=== PATIENT | female | born 2000 | race Caucasian/White ===

== ENCOUNTER 2023-05-25 16:11 | Emergency (ER) | payer OTHER, SELFPAY ==
[2023-05-25] VITALS (9 sets, daily range): BP systolic 154; BP diastolic 101; PULSE 60–78; RESP 14–21; TEMP 36.8; O2SAT 98; BMI 33.2
--- NOTE | 2023-05-25 16:53 | PC.NURSE ---
Pt had a cheerleading accident years ago and has had chronic back pain since then. States the last couple days the pain has been increasing. No kne injury per pt. Pt has no issues with bowel or bladder.
--- NOTE | 2023-05-25 17:01 | ED_ITS ---
HPI - General Adult General Chief complaint: Back Pain/Injury Stated complaint: CHEST PAIN AND BACK PAIN Time Seen by Provider: 05/25/23 16:27 Source: patient and family Mode of arrival: walk-in Limitations: no limitations History of Present Illness HPI narrative: patient is a 23-year-old female who presents to the emergency department for a variety of complaints. Patient states for the last several days she has had an increase in her chronic lumbar back pain. She states she has a history of issues at her L1/L2 disc spaces from a cheerleading injury about seven years ago. She never had surgery. She states she has pain to this area as well as the paraspinal areas of the lumbar spine but she states her pain is radiating around to her chest, abdomen. She reports associated bilateral knee pain with no injuries. She denies any swelling of the legs, she has no fevers, cough, congestion or hemoptysis. She has had no vomiting, diarrhea or urinary symptoms. No peripheral paresthesias. She states she has been nauseous, she has not been eating well over the last week. Related Data Previous Rx's Medication Instructions Recorded methocarbamol 750 mg tablet 750 mg PO TID PRN pain #20 tabs 05/25/23 naproxen sodium 550 mg tablet 550 mg PO BID PRN pain #10 tabs 05/25/23 ondansetron 4 mg disintegrating 4 mg PO Q6H PRN nausea and 05/25/23 tablet vomiting #12 tabs Allergies Allergy/AdvReac Type Severity Reaction Status Date / Time No Known Drug Allergies Allergy Verified 05/25/23 16:19 Review of Systems ROS Constitutional Denies: fever or chills Ears, nose, mouth, and throat Denies: neck pain Cardiovascular Reports: chest pain Respiratory Denies: shortness of breath or cough Gastrointestinal Reports: abdominal pain and nausea; Denies: vomiting Genitourinary Denies: painful urination Musculoskeletal Reports: back pain, extremity pain and joint pain; Denies: neck pain Integumentary/Breast Denies: rash Neurological Denies: headache Exam Narrative Exam Narrative: Gen.: Awake, alert, in no distress Head: Normocephalic, atraumatic ENT: Moist mucous membranes Respiratory: No respiratory distress, lungs clear bilaterally Cardio: Regular rate and rhythm Gastrointestinal: Abdomen is soft, nondistended and nontender to palpation Back: no bony tenderness of the T-spine or L-spine with diffuse minimal tenderness of the flanks, no CVA tenderness Extremities: Moves extremities equally, no edema or erythema noted of the bilateral knee joints Psych: Normal mood and affect Neuro: No focal neuro deficit Skin: Warm, dry, intact Constitutional Vital Signs, click to edit/add: Last Vital Signs Temp 98.3 F 05/25/23 16:17 Pulse 60 05/25/23 18:00 Resp 19 05/25/23 17:40 BP 154/101 H 05/25/23 16:17 Pulse Ox 98 05/25/23 16:17 O2 Del Method Room Air 05/25/23 16:17 Course Vital Signs Vital signs: Vital Signs Temperature 98.3 F 05/25/23 16:17 Pulse Rate 78 05/25/23 16:17 Respiratory Rate 18 05/25/23 16:17 Blood Pressure 154/101 H 05/25/23 16:17 Pulse Oximetry 98 05/25/23 16:17 Oxygen Delivery Method Room Air 05/25/23 16:17 Temperature 98.3 F 05/25/23 16:17 Pulse Rate 60 05/25/23 18:00 Respiratory Rate 19 05/25/23 17:40 Blood Pressure 154/101 H 05/25/23 16:17 Pulse Oximetry 98 05/25/23 16:17 Oxygen Delivery Method Room Air 05/25/23 16:17 Medical Decision Making MDM Narrative Medical decision making narrative: labs are unremarkable, exam is consistent with muscular skeletal back pain. Patient was reexamined by attending physician prior to discharge. She is started on NSAIDs, muscle relaxants and nausea medication. Follow-up with PCP and return to the Emergency Room if symptoms change or worsen. Abdomen is soft and benign, nonsurgical at discharge. Medical Records Medical records reviewed: Yes I reviewed the patient's medical records Lab Data Lab results reviewed: Yes I reviewed the patient's lab results Labs: Lab Results 05/25/23 Range/Units 17:14 WBC 12.9 H (4.0-11.0) 10^3/uL RBC 4.70 (4.20-5.40) 10^6/uL Hgb 13.6 (12.0-16.0) g/dL Hct 40.5 (36.0-48.0) % MCV 86.2 (81.0-99.0) fL MCH 28.9 (26.7-34.0) pg MCHC 33.6 (29.9-35.2) g/dL RDW 13.2 (11.0-15.0) % Plt Count 326 (150-450) 10^3/uL MPV 8.9 L (9.5-13.5) fL Neut % (Auto) 77.2 H (43.0-75.0) % Lymph % (Auto) 16.8 L (20.5-60.0) % [place] % (Auto) 5.2 (1.7-12.0) % Eos % (Auto) 0.2 L (0.9-7.0) % Baso % (Auto) 0.2 (0.2-2.0) % Neut # (Auto) 9.9 H (1.4-6.5) 10^3/uL Lymph # (Auto) 2.2 (1.2-3.8) 10^3/uL [place] # (Auto) 0.7 (0.3-0.8) 10^3/uL Eos # (Auto) 0.0 (0.0-0.7) 10^3/uL Baso # (Auto) 0.0 (0.0-0.1) 10^3/uL Abs Immat Gran (auto) 0.05 H (0.00-0.03) 10^3/uL Imm/Tot Granulo (auto) 0.4 (0.0-0.5) % ESR 28 H (<=20) mm/hr Sodium 140 (136-145) mmol/L Potassium 3.6 (3.5-5.1) mmol/L Chloride 102 (98-107) mmol/L Carbon Dioxide 25.2 (21.0-32.0) mmol/L Anion Gap 16.4 BUN 10.0 (7.0-18.0) mg/dL Creatinine 0.88 (0.55-1.02) mg/dL Est GFR ( Amer) >60 (>=60) Est GFR (Non-Af Amer) >60 (>=60) BUN/Creatinine Ratio 11.4 Glucose 86 (74-106) mg/dL Calcium 8.9 (8.5-10.1) mg/dL Total Bilirubin 0.5 (0.2-1.0) mg/dL AST 14 L (15-37) U/L ALT 20 (14-59) U/L Alkaline Phosphatase 70 (46-116) U/L C-Reactive Protein <0.2 (<=1.0) mg/dL Total Protein 8.0 (6.4-8.2) g/dL Albumin 4.0 (3.4-5.0) g/dL Globulin 4.0 g/dL Albumin/Globulin Ratio 1.0 Lipase 48.0 L (73.0-393.0) U/L Urine HCG, Qual Negative (NEGATIVE) ECG Data Attestation: I personally reviewed and interpreted this ECG as follows: (normal sinus rhythm at a rate of sixty-six, no accute ST elevation or ectopy. EKG reviewed by attending physician) Discharge Plan Discharge Chief Complaint: Back Pain/Injury Clinical Impression: Acute exacerbation of chronic low back pain Patient Disposition: Home, Self-Care Time of Disposition Decision: 18:47 Condition: Good Prescriptions / Home Meds: New methocarbamol 750 mg tablet 750 mg PO TID PRN (Reason: pain) Qty: 20 0RF naproxen sodium 550 mg tablet 550 mg PO BID PRN (Reason: pain) Qty: 10 0RF ondansetron 4 mg tablet,disintegrating 4 mg PO Q6H PRN (Reason: nausea and vomiting) Qty: 12 0RF Instructions: Acute Low Back Pain (ED) Stand Alone Forms: Portal Instructions Referrals: Physician,Non-Staff, MD [Primary Care Provider] - 1 week
--- NOTE | 2023-05-25 17:12 | XR_ITS ---
The [address] [address] Patient Name: ZANDER FANG MRN: [id number] date: 2000 Sex: F Assigned Patient Location: ER Current Patient Location: Accession/Order Number: [id number] Exam Date: 05/25/2023 17:35 Report Date: 05/25/2023 18:55 At the request of: PRIETO CROOK Procedure: XR acute abdomen series EXAM: XR acute abdomen series HISTORY: Abdominal pain COMPARISON: None. TECHNIQUE: Abdominal X-ray, 1 view FINDINGS: Support devices: None. Bowel: Unremarkable bowel gas pattern. No bowel dilatation. No radiographic evidence of nephrolithiasis or ureterolithiasis. Additional findings: None. XR/XR acute abdomen series IMPRESSION: No acute abnormality on radiographic exam. Electronically authenticated by: ANDRES MARES Date: 05/25/2023 18:55
[2023-05-25 17:24] LABS: Basophils Percent Auto 0.2 % (0.2-2.0); Eosinophils Percent Auto 0.2 % (0.9-7.0); Hematocrit 40.5 % (36.0-48.0); Hemoglobin 13.6 g/dL (12.0-16.0); Immature Granulocytes Abs Auto 0.05 10^3/uL (0.00-0.03); Immature Granulocytes Pct Auto 0.4 % (0.0-0.5); Lymphocytes Absolute Auto 2.2 10^3/uL (1.2-3.8); Lymphocytes Percent Auto 16.8 % (20.5-60.0); Mean Corpuscular HGB Conc 33.6 g/dL (29.9-35.2); Mean Corpuscular Hemoglobin 28.9 pg (26.7-34.0); Mean Corpuscular Volume 86.2 fL (81.0-99.0); Mean Platelet Volume 8.9 fL (9.5-13.5); Monocytes Absolute Auto 0.7 10^3/uL (0.3-0.8); Monocytes Percent Auto 5.2 % (1.7-12.0); Neutrophils Absolute Auto 9.9 10^3/uL (1.4-6.5); Neutrophils Percent Auto 77.2 % (43.0-75.0); Platelet Count 326 10^3/uL (150-450); Red Cell Distribution Width 13.2 % (11.0-15.0); White Blood Count 12.9 10^3/uL (4.0-11.0)
--- NOTE | 2023-05-25 17:31 | ECG_ITS ---
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
[2023-05-25 17:35] LABS: Erythrocyte Sedimentation Rate 28 mm/hr (<=20)
[2023-05-25 17:37] LABS: HCG Qualitative NEGATIVE (NEGATIVE)
[2023-05-25 17:38] LABS: Alanine Aminotransferase 20 U/L (14-59); Alkaline Phosphatase 70 U/L (46-116); Anion Gap 16.4; Aspartate Amino Transferase 14 U/L (15-37); BUN Creatinine Ratio 11.4; Bilirubin Total 0.5 mg/dL (0.2-1.0); Calcium 8.9 mg/dL (8.5-10.1); Carbon Dioxide 25.2 mmol/L (21.0-32.0); Chloride 102 mmol/L (98-107); Estimated GFR (African America >60 (>=60); Estimated GFR (Non-African Ame >60 (>=60); Glucose 86 mg/dL (74-106); Potassium 3.6 mmol/L (3.5-5.1); Sodium 140 mmol/L (136-145)
[2023-05-25 17:42] LABS: C Reactive Protein <0.2 mg/dL (<=1.0)
[2023-05-25] MEDS: ORPHENADRINE 60 MG/ 2 ML VIAL IM (17:43)
[2023-05-25] MEDS: KETOROLAC TROMETHAMINE 60 MG/2 ML VIAL IM (17:43)
[2023-05-25] MEDS: ONDANSETRON 4 MG RAPDIS TABLET SL (17:44)
== END 2023-05-25 18:55 | disposition home or self-care (01) ==
PROVIDERS: Physician Assistant; Emergency Provider Emergency Medicine
DX: M54.50 Low back pain, unspecified (principal); G89.29 Other chronic pain
CPT/HCPCS: 36415; 74022; 80053; 81003; 83690; 84703; 85025; 85652; 86140; 93005; 96372; 99285

== ENCOUNTER 2023-05-30 23:29 | Emergency (ER) | payer OTHER, SELFPAY ==
[2023-05-30 23:36] VITALS: BP 161/101; PULSE 88; RESP 16; TEMP 36.6; O2SAT 96; BMI 33.2
--- NOTE | 2023-05-30 23:50 | ED_ITS ---
HPI - General Adult General Chief complaint: Headache Stated complaint: migrain and numbness on l side. Time Seen by Provider: 05/30/23 23:44 Source: patient Mode of arrival: walk-in Limitations: no limitations History of Present Illness HPI narrative: presents complaining of a headache for past 4 days. Woke up 4 days ago with pain behind her right eye and pressure left uatsdin/parietal scalp area. Improved some yesterday. Returned again tonight. State she step out of her car and her left arm felt like it was asleep but she could still move it and the left side of her face was numb. Lasted about 5 minutes. No visual complaint. Denies past history of migraine or similar headaches Related Data Home Medications Medication Instructions Recorded Confirmed metronidazole 500 mg tablet mg 05/30/23 Previous Rx's Medication Instructions Recorded methocarbamol 750 mg tablet 750 mg PO TID PRN pain #20 tabs 05/25/23 naproxen sodium 550 mg tablet 550 mg PO BID PRN pain #10 tabs 05/25/23 ondansetron 4 mg disintegrating 4 mg PO Q6H PRN nausea and 05/25/23 tablet vomiting #12 tabs Allergies Allergy/AdvReac Type Severity Reaction Status Date / Time No Known Drug Allergies Allergy Verified 05/30/23 23:36 Review of Systems ROS Status of ROS 10 or more systems reviewed and unremarkable except as noted in history and below PFSH [facility] Social History Smoking status: Current every day smoker Exam Constitutional Vital Signs, click to edit/add: Last Vital Signs Temp 97.8 F 05/30/23 23:36 Pulse 88 05/30/23 23:36 Resp 16 05/30/23 23:36 BP 161/101 H 05/30/23 23:36 Pulse Ox 96 05/30/23 23:36 O2 Del Method Room Air 05/30/23 23:36 Common normals: no apparent distress, average body habitus, oriented x3, no limitations and healthy appearing HENNC Common normals: normocephalic and head/scalp atraumatic Respiratory Common normals: normal respiratory effort, no retractions, no use of accessory muscles and clear to auscultation bilaterally Cardio Common normals: regular rate, regular rhythm, S1 normal heart sound and S2 normal heart sound GI Common normals: Normal to inspection, nondistended, normoactive bowel sounds present, soft to palpation and non-tender Extremity Common normals: normal to inspection and full ROM Neuro Common normals: oriented x3, CN's II-XII intact bilaterally, moves all extremities, no focal motor deficits and no sensory deficits noted Psych Appearance: grossly normal Course Vital Signs Vital signs: Vital Signs Temperature 97.8 F 05/30/23 23:36 Pulse Rate 88 05/30/23 23:36 Respiratory Rate 16 05/30/23 23:36 Blood Pressure 161/101 H 05/30/23 23:36 Pulse Oximetry 96 05/30/23 23:36 Oxygen Delivery Method Room Air 05/30/23 23:36 Temperature 97.8 F 05/30/23 23:36 Pulse Rate 88 05/30/23 23:36 Respiratory Rate 16 05/30/23 23:36 Blood Pressure 161/101 H 05/30/23 23:36 Pulse Oximetry 96 05/30/23 23:36 Oxygen Delivery Method Room Air 05/30/23 23:36 Medical Decision Making MDM Narrative Medical decision making narrative: patient presents with complicated migraine. associated with left facial and left arm numbness that resolved after 5 minutes . Her headache also resolved. Normal neuro exam. CT brain neg. Patient is now asymptomatic . Discharged home to follow up with Neurology Lab Data Labs: Lab Results 05/30/23 Range/Units 23:55 WBC 14.4 H (4.0-11.0) 10^3/uL RBC 4.88 (4.20-5.40) 10^6/uL Hgb 14.0 (12.0-16.0) g/dL Hct 41.6 (36.0-48.0) % MCV 85.2 (81.0-99.0) fL MCH 28.7 (26.7-34.0) pg MCHC 33.7 (29.9-35.2) g/dL RDW 13.1 (11.0-15.0) % Plt Count 344 (150-450) 10^3/uL MPV 9.0 L (9.5-13.5) fL Neut % (Auto) 80.4 H (43.0-75.0) % Lymph % (Auto) 14.2 L (20.5-60.0) % [place] % (Auto) 4.5 (1.7-12.0) % Eos % (Auto) 0.5 L (0.9-7.0) % Baso % (Auto) 0.1 L (0.2-2.0) % Neut # (Auto) 11.6 H (1.4-6.5) 10^3/uL Lymph # (Auto) 2.0 (1.2-3.8) 10^3/uL [place] # (Auto) 0.7 (0.3-0.8) 10^3/uL Eos # (Auto) 0.1 (0.0-0.7) 10^3/uL Baso # (Auto) 0.0 (0.0-0.1) 10^3/uL Abs Immat Gran (auto) 0.05 H (0.00-0.03) 10^3/uL Imm/Tot Granulo (auto) 0.3 (0.0-0.5) % Sodium 136 (136-145) mmol/L Potassium 3.8 (3.5-5.1) mmol/L Chloride 101 (98-107) mmol/L Carbon Dioxide 23.5 (21.0-32.0) mmol/L Anion Gap 15.3 BUN 11.0 (7.0-18.0) mg/dL Creatinine 1.03 H (0.55-1.02) mg/dL Est GFR ( Amer) >60 (>=60) Est GFR (Non-Af Amer) >60 (>=60) BUN/Creatinine Ratio 10.7 Glucose 92 (74-106) mg/dL Lactate 1.3 (0.4-2.0) mmol/L Calcium 8.7 (8.5-10.1) mg/dL Total Bilirubin 0.3 (0.2-1.0) mg/dL AST 29 (15-37) U/L ALT 60 H (14-59) U/L Alkaline Phosphatase 70 (46-116) U/L Total Protein 8.1 (6.4-8.2) g/dL Albumin 4.2 (3.4-5.0) g/dL Globulin 3.9 g/dL Albumin/Globulin Ratio 1.1 Serum HCG, Qual Negative (NEGATIVE) Discharge Plan Discharge Chief Complaint: Headache Clinical Impression: Migraine Prescriptions / Home Meds: No Action methocarbamol 750 mg tablet 750 mg PO TID PRN (Reason: pain) Qty: 20 0RF naproxen sodium 550 mg tablet 550 mg PO BID PRN (Reason: pain) Qty: 10 0RF ondansetron 4 mg tablet,disintegrating 4 mg PO Q6H PRN (Reason: nausea and vomiting) Qty: 12 0RF metronidazole 500 mg tablet Instructions: Migraine Headache (ED) Additional Instructions: follow up with Neurology Stand Alone Forms: Portal Instructions Referrals: Physician,Non-Staff, MD [Primary Care Provider] - 1 week
[2023-05-31 00:09] LABS: Basophils Percent Auto 0.1 % (0.2-2.0); Eosinophils Absolute Auto 0.1 10^3/uL (0.0-0.7); Eosinophils Percent Auto 0.5 % (0.9-7.0); Hematocrit 41.6 % (36.0-48.0); Immature Granulocytes Abs Auto 0.05 10^3/uL (0.00-0.03); Immature Granulocytes Pct Auto 0.3 % (0.0-0.5); Lymphocytes Percent Auto 14.2 % (20.5-60.0); Mean Corpuscular HGB Conc 33.7 g/dL (29.9-35.2); Mean Corpuscular Hemoglobin 28.7 pg (26.7-34.0); Mean Corpuscular Volume 85.2 fL (81.0-99.0); Monocytes Absolute Auto 0.7 10^3/uL (0.3-0.8); Monocytes Percent Auto 4.5 % (1.7-12.0); Neutrophils Absolute Auto 11.6 10^3/uL (1.4-6.5); Neutrophils Percent Auto 80.4 % (43.0-75.0); Platelet Count 344 10^3/uL (150-450); Red Blood Count 4.88 10^6/uL (4.20-5.40); Red Cell Distribution Width 13.1 % (11.0-15.0); White Blood Count 14.4 10^3/uL (4.0-11.0)
[2023-05-31 00:18] LABS: Alanine Aminotransferase 60 U/L (14-59); Albumin Globulin Ratio 1.1; Albumin Level 4.2 g/dL (3.4-5.0); Alkaline Phosphatase 70 U/L (46-116); Anion Gap 15.3; Aspartate Amino Transferase 29 U/L (15-37); BUN Creatinine Ratio 10.7; Bilirubin Total 0.3 mg/dL (0.2-1.0); Calcium 8.7 mg/dL (8.5-10.1); Carbon Dioxide 23.5 mmol/L (21.0-32.0); Chloride 101 mmol/L (98-107); Estimated GFR (African America >60 (>=60); Estimated GFR (Non-African Ame >60 (>=60); Globulin 3.9 g/dL; Glucose 92 mg/dL (74-106); Potassium 3.8 mmol/L (3.5-5.1); Sodium 136 mmol/L (136-145); Total Protein 8.1 g/dL (6.4-8.2)
[2023-05-31 00:21] LABS: Lactate/Lactic Acid 1.3 mmol/L (0.4-2.0)
[2023-05-31 00:28] LABS: HCG Qualitative NEGATIVE (NEGATIVE)
--- NOTE | 2023-05-31 00:39 | CT_ITS ---
The [address] [address] Patient Name: ZANDER FANG MRN: [id number] date: 2000 Sex: F Assigned Patient Location: ER Current Patient Location: Accession/Order Number: [id number] Exam Date: 05/31/2023 00:55 Report Date: 05/31/2023 01:11 At the request of: HEENA DUONG Procedure: CT head/brain wo con INDICATION: 23 years old; Female. Migraine headache for one hour. Left arm and left-sided face numbness for 15 minutes tonight. TECHNIQUE: CT Head (ax/cor/sag reformats). Ionizing radiation dose reduced via iterative reconstruction/FBP blend and body size kV/mA adjustment. Comparison: Head CT dated 09/06/2017. FINDINGS: POSTOPERATIVE CHANGES: None. BRAIN PARENCHYMA: No focal lesions. No mass effect. No midline shift or herniation. No intraparenchymal or extra-axial hemorrhage. Normal botello/white differentiation. VENTRICLES/EXTRA-AXIAL SPACES: Normal for patient's age. SINUSES/MASTOIDS: The visualized sinuses are clear. Mastoid air cells are clear. MSK: No displaced or depressed calvarial fracture is noted. OTHER: No hyperdense intraluminal thrombus is seen. CT/CT head/brain wo con IMPRESSION: 1. No acute intracranial abnormality. No hemorrhage or mass effect. Electronically authenticated by: JACOB ANDREWS Date: 05/31/2023 01:11
== END 2023-05-31 02:00 | disposition home or self-care (01) ==
PROVIDERS: Emergency Provider Internal Medicine
DX: G43.909 Migraine, unspecified, not intractable, without status migrainosus (principal); Z79.899 Other long term (current) drug therapy; F17.210 Nicotine dependence, cigarettes, uncomplicated
CPT/HCPCS: 36415; 70450; 80053; 83605; 84703; 85025; 99284